=== PATIENT | male | born 1960 | race Caucasian/White ===

== ENCOUNTER → 2016-08-25 | Outpatient (CLI) | payer OTHER ==
[2016-08-25 11:11] LABS: ALBUMIN 3.9 GM/DL (3.2-5.2); ALBUMIN/GLOBULIN RATIO 1.44 (1.00-1.93); ALKALINE PHOSPHATASE 73 U/L (45-117); ALT/SGPT 25 U/L (12-78); ANION GAP 5 MEQ/L (8-16); AST/SGOT 13 U/L (15-37); BILIRUBIN,TOTAL 0.6 MG/DL (0.2-1.0); BLOOD UREA NITROGEN 16 MG/DL (7-18); CALCIUM LEVEL 9.1 MG/DL (8.5-10.1); CARBON DIOXIDE LEVEL 34 MEQ/L (21-32); CHLORIDE LEVEL 103 MEQ/L (98-107); CHOLESTEROL LEVEL 193 MG/DL (<200); CREATININE FOR GFR 0.79 MG/DL (0.70-1.30); FREE T4 0.87 NG/DL (0.76-1.46); GLOMERULAR FILTRATION RATE > 60.0 (>56); GLUCOSE, FASTING 103 MG/DL (70-105); POTASSIUM SERUM 4.6 MEQ/L (3.5-5.1); SODIUM LEVEL 142 MEQ/L (136-145); TOTAL PROTEIN 6.6 GM/DL (6.4-8.2); TRIGLYCERIDES LEVEL 101 MG/DL (<150)
[2016-08-27 10:41] LABS: THYROID PEROXIDASE ANTIBODY < 28.0 U/ML (<60.0)
== END ==
LOC: M LAB 09:20
PROVIDERS: ATTEND Family Medicine
DX: Z13.29 Encounter for screening for other suspected endocrine disorder (principal); Z13.220 Encounter for screening for lipoid disorders; Z12.5 Encounter for screening for malignant neoplasm of prostate; E04.0 Nontoxic diffuse goiter
CPT/HCPCS: 36415; 80053; 80061; 84439; 84443; 86376; 86800; G0103

== ENCOUNTER → 2016-08-31 | Outpatient (CLI) | payer OTHER ==
--- NOTE | 2016-08-31 16:10 | REP ---
Thyroid sonography: History: Diffuse right-sided goiter. Findings: The thyroid isthmus is thickened to 0.8 cm in diameter. The right thyroid lobe measures 10.7 x 7.9 x 6.1 cm in diameter. Left lobe dimensions are 4.6 x 1.9 x 1.7 cm. A large right-sided nodule replaces or essentially replaces the right lobe. Very little normal right thyroid parenchyma is seen. This nodule measures 10.7 x 6.1 x 6.7 cm. There is a 0.3 cm cyst to the left of midline in the isthmus. No left-sided nodule is appreciated. Impression: One very large right thyroid lobe solid nodule. 10.7 cm in greatest diameter. It is essentially replaces the right lobe. Signed by Michael West MD 08/31/2016 05:03 P
== END ==
LOC: M RAD 12:44
PROVIDERS: ATTEND Family Medicine
DX: E04.1 Nontoxic single thyroid nodule (principal)

== ENCOUNTER → 2016-09-07 | Outpatient (CLI) | payer OTHER | LOC: M WUC 08:08 | PROVIDERS: ATTEND Family Medicine | DX: R68.82 Decreased libido (principal) ==

== ENCOUNTER 2016-10-31 15:11 | Observation (INO) | payer OTHER ==
[~2016-10-31] VITALS: Ht 172.7 cm; Wt 84.0 kg
[2016-10-31] MEDS ORDERED: ASPI81CH PO (15:32)
[2016-10-31] MEDS ORDERED: TEST5GEL TOP (15:32)
[2016-10-31] MEDS ORDERED: NYQU1LIQ PO (15:32)
--- NOTE | 2016-10-31 16:48 | REP ---
CT Head without contrast HISTORY: Syncope COMPARISON: None There is no intraparenchymal hemorrhage, acute infarct, mass or midline shift. The ventricular system is normal in appearance. There is no extra cerebral collection. There is no fracture. Mucosal thickening is present in the ethmoid sinuses. Soft tissue swelling is present over the right parietal bone. Impression: There is no intracranial lesion. Signed by Juan Carballo MD 10/31/2016 04:40 P
--- NOTE | 2016-10-31 17:12 | REP ---
Clinical: Near-syncopal episode . Comparison: None . Technique: PA. Findings: The mediastinum and cardiac silhouette are normal. The lung haq are clear and without acute consolidation, effusion, or pneumothorax. The skeletal structures are intact and normal. Impression: 1. No acute cardiopulmonary process. Signed by Joshua Soni MD 10/31/2016 05:04 P
[2016-10-31 17:26] LABS: BASO % 0.2 % (0.0-1.0); EOS % 0.3 % (0.0-3.0); LARGE UNSTAINED CELL # 0.1 K/mm3 (0.0-0.4); LYMPH # 0.5 K/mm3 (1.5-4.5); MEAN CORPUSCULAR HEMOGLOBIN 30.2 pg (27.0-33.0); MEAN CORPUSCULAR HGB CONC 34.1 g/dl (32.0-36.5); MEAN CORPUSCULAR VOLUME 88.5 fl (80.0-96.0); MONO # 0.4 K/mm3 (0.0-0.8); MONO % 8.8 % (0.0-5.0); NEUTROPHILS # 3.1 K/mm3 (1.8-7.7); NEUTROPHILS % 77.6 % (36.0-66.0); PLATELET COUNT, AUTOMATED 153 k/mm3 (150-450); RED CELL DISTRIBUTION WIDTH 12.2 % (11.5-14.5)
[2016-10-31 17:51] LABS: ANION GAP 8 MEQ/L (8-16); BLOOD UREA NITROGEN 24 MG/DL (7-18); CALCIUM LEVEL 8.8 MG/DL (8.5-10.1); CARBON DIOXIDE LEVEL 30 MEQ/L (21-32); CHLORIDE LEVEL 104 MEQ/L (98-107); CREATININE FOR GFR 0.68 MG/DL (0.70-1.30); GLOMERULAR FILTRATION RATE > 60.0 (>56); GLUCOSE, FASTING 110 MG/DL (70-105); SODIUM LEVEL 142 MEQ/L (136-145)
[2016-10-31] MEDS ORDERED: ONDANSETRON 4MG/2ML VIAL (J2405) IV ONE (19:00)
[2016-10-31] MEDS ORDERED: MORPHINE 4 MG/ML 1ML SYRINGE IV ONE (19:00)
[2016-10-31] MEDS ORDERED: METOPROLOL TART 50 MG TAB PO ONE (19:00)
[2016-10-31] MEDS ORDERED: ASPI81TAEC PO (23:56)
[2016-10-31] MEDS ORDERED: ANDR1.62 TD (23:56)
[2016-10-31] MEDS ORDERED: DAYLIQ3 PO (23:58)
[2016-10-31] MEDS ORDERED: VITA500C3 PO (23:58)
[2016-11-01] VITALS (8 sets, daily range): BP systolic 119–205; BP diastolic 55–95
[2016-11-01] MEDS ORDERED: [UNRECOGNIZED DRUG - CODE] PO (00:02)
[2016-11-01] MEDS ORDERED: LISINOPRIL 10 MG TAB PO ONE (00:15)
[2016-11-01] MEDS ORDERED: ONDANSETRON 4MG/2ML VIAL (J2405) IV PRN (00:45)
[2016-11-01] MEDS ORDERED: PERCOCET 5MG/325MG TAB PO PRN (00:45)
[2016-11-01] MEDS ORDERED: ISOVUE-370 76% 100ML VIAL (Q9967) As Ordered ONE ×2 (00:59→08:16)
[2016-11-01 01:09] LABS: MAGNESIUM LEVEL 1.6 MG/DL (1.8-2.4); THYROXINE (T4) 7.9 UG/DL (4.5-12.0)
--- NOTE | 2016-11-01 01:10 | HPEPDOC ---
Medical History and Physical Date of Admission Nov 01, 2016 at 00:16 History and Physical PRIMARY CARE PROVIDER: ATTENDING: Jeff London MD CHIEF COMPLAINT: 'Passed out' HISTORY OF PRESENT ILLNESS: This is a 55-year-old male past medical history of borderline hypertension who presents with a syncopal episode. 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 Patient states that there is a lot of people working with him in close quarters. The patient states that while he was standing he started to have symptoms of dizziness and lightheadedness. Patient then states that he stepped back so that he may sit down, when he suddenly passed out. This was a witnessed syncopal episode. No tongue trauma/fecal or urinary incontinence/ convulsions. Patient states she's had a prior syncopal episode but that's when he had blood drawn in August 2016. Of note patient also states that he's had recent upper respiratory tract symptoms since Saturday with increasing sore throats as well as a nonproductive cough. Patient states the sick contacts are his coworkers. Had also complained of a headache when he coughs that is more frontal, 5 out of 10, no alleviating or exacerbating factors. No prior history of migraines. No focal deficits. No blurred vision. Patient does complain of neck pain upon movement as well as of posterior occipital pain after his he sustained a fall. Patient denied chest pain/shortness of breath/palpitations prior to and after his syncopal episode. Patient also had blood pressure systolic greater than 200s on presentation. He was also noted to have a left bundle-branch block, with no prior EKG noted. Dr. Elizabeth had spoken to Dr. Torres with recommendations to observe the patient overnight on telemetry. Troponins negative 2. Of note the patient does have a fairly large goiter which she states has been there over the past 15 years. He states he's follow-up with his primary care physician who is observing at. He was offered surgical resection in the past however refused. PAST MEDICAL HISTORY: As per HPI PAST SURGICAL HISTORY: None SOCIAL HISTORY:H/o alcohol abuse; quit 35 years ago. Remote history of tobacco abuse - 1ppw. H/o marijuana use. No recent use. Lives with . 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 FAMILY HISTORY: F- CO age 52, B- HTN, M - Lupus ALLERGIES: Please see below. REVIEW OF SYSTEMS: HEENT: + sore throat/headache CARDIOVASCULAR: Denies chest pain/palpitations RESPIRATORY: No shortness of breath/cough GASTROINTESTINAL: denies nausea/vomiting GENITOURINARY: Denies dysuria/urinary urgency. MUSCULOSKELETAL: Denies myalgias/arthralgias NEUROLOGICAL: Denies any focal weakness Rest of ROS negative. HOME MEDICATIONS: Please see below. PHYSICAL EXAMINATION: Vitals: (see below) General: No acute distress, laying comfortably in bed. HEENT: Moist mucous membranes. Bruise on posterior head with some swelling. Minimal serosang drainage. Bruise on left occipital posterior region as well. Neck: No JVD or lymphadenopathy. Neck full ROM with some pain on lateral movement. Large goiter - non tender. Cardiac: RRR, No murmurs Pulm: Coarse crackles b/l bases. No wheezing, rhonchi Abd: NT/ND + BS Ext: No edema or cyanosis Neuro: AAO x3 Strength 5/5 BUE and BLE. CN 2-12 intact. Negative Babinki. LABORATORY DATA: See below. IMAGING: CT Head 10/31/16 Impression: There is no intracranial lesion. CXR 10/31/16 Impression: 1. No acute cardiopulmonary process. MICROBIOLOGY: Please see below. ASSESSMENT/PLAN: Syncope, with posterior head trauma- the patient had one prior episode of syncope during a blood draw in August. Denied any chest pain before or after his syncopal episode. EKG with left bundle branch block with no prior EKG for comparison. Cardiac enzymes negative 2. We'll observe patient's in PCU. We'll also repeat another set of cardiac enzymes in the a.m. Echocardiogram to evaluate valvular function/EF. Consider cardiology consultation the a.m. with Dr. Torres depending on clinical improvement. We'll also check orthostatics. Questionable whether this thyroid goiter/mass contributed to vagal response, or if this left bundle branch block contributed to conduction delay leading to syncope. CT head negative. CT cervical spine pending. Hypertensive urgency- patient states that his blood pressure normally runs 130s/ 70s at home, 150s/80s at his primary care physician's office. Systolic blood pressure was better than 200 on presentation. We'll start patient on lisinopril. Hydralazine as needed. Large goiter/mass- we'll obtain a CT of the neck with contrast to evaluate. 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 DVT prophylaxis- SCDs Patient was followed by Dr. Hodge starting 11/01/16 at 7 AM. Vital Signs Vital Signs Date Time Temp Pulse Resp B/P Pulse Ox O2 Delivery O2 Flow Rate FiO2 10/31/16 15:37 98.9 74 16 180/82 96 Room Air Laboratory Data Labs 24H Laboratory Tests 2 10/31/16 16:56: Anion Gap 8, White Blood Count 4.0, Red Blood Count 4.81, Hemoglobin 14.5, Hematocrit 42.6, Mean Corpuscular Volume 88.5, Mean Corpuscular Hemoglobin 30.2 , Mean Corpuscular Hemoglobin Concent 34.1, Red Cell Distribution Width 12.2, Platelet Count 153, Neutrophils (%) (Auto) 77.6H, Lymphocytes (%) (Auto) 11.0L, Monocytes (%) (Auto) 8.8H, Eosinophils (%) (Auto) 0.3, Basophils (%) (Auto) 0.2 , Neutrophils # (Auto) 3.1, Lymphocytes # (Auto) 0.5L, Monocytes # (Auto) 0.4, Eosinophils # (Auto) 0.0, Basophils # (Auto) 0.0, Blood Urea Nitrogen 24H, Creatinine 0.68L, Sodium Level 142, Potassium Level 4.0, Chloride Level 104, Carbon Dioxide Level 30, Calcium Level 8.8, Total Creatine Kinase 217, Creatine Kinase MB 2.1, Creatine Kinase MB Relative Index 0.96, Glomerular Filtration Rate > 60.0, Large Unclassified Cells # 0.1, Large Unclassified Cells % 2.0, Thyroid Stimulating Hormone (TSH) 1.420, Troponin I 0.03 10/31/16 17:18: Bedside Glucose (Misc Panel) 127H 10/31/16 21:20: Total Creatine Kinase 161, Creatine Kinase MB 1.9, Creatine Kinase MB Relative Index 1.18, Troponin I 0.03 CBC/BMP Laboratory Tests 10/31/16 16:56 Calcium Level 8.8, Total Creatine Kinase 217, Red Blood Count 4.81, Mean Corpuscular Volume 88.5, Mean Corpuscular Hemoglobin 30.2, Mean Corpuscular Hemoglobin Concent 34.1, Red Cell Distribution Width 12.2, Neutrophils (%) (Auto ) 77.6 H, Lymphocytes (%) (Auto) 11.0 L, Monocytes (%) (Auto) 8.8 H, Eosinophils (%) (Auto) 0.3, Basophils (%) (Auto) 0.2, Neutrophils # (Auto) 3.1, Lymphocytes # (Auto) 0.5 L, Monocytes # (Auto) 0.4, Eosinophils # (Auto) 0.0, Basophils # (Auto) 0.0 Microbiology Microbiology 10/31/16 Influenza Virus Type A Antigen - Final, Complete 10/31/16 Influenza Virus Type B Antigen - Final, Complete Home Medications Scheduled (Androgel Pump) 1.62 % Gel 1 DOSE TD DAILY 2 PUMPS, PLACES ON SHOULDERS AND UPPER ARMS Ascorbic Acid (Vitamin C) 500 Mg Chw 500 MG PO DAILY Aspirin (Aspirin EC) 81 Mg Tabec 81 MG PO DAILY Scheduled PRN (Nyquil Severe Cold/Flu 5-6.25-10-325 mg/15Ml) 1 Liq Liq 1 LIQ PO QHS PRN PRN COLD/FLU (Daytime PE Multi-Symptom 10-5-325 mg) 1 Cap Cap 1 CAP PO Q6H PRN PRN COLD/FLU Allergies Coded Allergies: No Known Drug Allergy (Verified Allergy, Unknown, 10/31/16) JEFF LONDON MD Nov 01, 2016 01:10
[2016-11-01] MEDS ORDERED: hydrALAZINE INJ 20 MG/ML VIAL IV SCH (02:00)
--- NOTE | 2016-11-01 02:00 | REPUSA ---
CLINICAL HISTORY: Neck pain. TECHNIQUE: Multiple axial images were obtained through the cervical spine. Images were also reconstru cted in coronal and sagittal planes. The study was performed without IV contrast. COMMENTS: Significantly enlarged right thyroid lobe measuring 11.7x8.5x8.9 cm. Associated heterogeneous nodules of the right thyroid lobe. Associated heterogeneous calcifications. Significant mass effect on the trachea which is deviated to the left side. Retrosternal/superior mediastinal extension of the enlarged right thyroid lobe. There is no fracture or spondylolisthesis visualized. The paraspinal soft tissues are unremarkable. T here are no lytic or blastic lesions. Straightening of cervical lordosis is seen, suggesting muscular spasm. There is evidence of mild mult ilevel disk disease, demonstrated by osteophytosis and endplate sclerosis. Findings are more prominen t at C5-C6 level. IMPRESSION: 1. No fracture or spondylolisthesis. 2. Straightening of cervical lordosis is seen, suggesting muscular spasm. 3. Multilevel spondylosis. Multilevel degenerative disc disease. 4. Retrosternal/superior mediastinum right thyroid goiter. Thank you for your kind referral of this patient.
[2016-11-01] MEDS: ACETAMINOPHEN TAB 650MG DOSE (2X325MG) PO PRN ×3 (02:04→21:43)
[2016-11-01] MEDS ORDERED: amLODIPine 5 MG TAB PO ONE (03:15)
[2016-11-01] MEDS ORDERED: MAG SULF 1GM/100ML (MAG RUN) 1 GM in APPROPRIATE DILUENT 1 EA IV ONE (03:15)
[2016-11-01] MEDS: hydrALAZINE INJ 20 MG/ML VIAL IV SCH ×5 (03:42→08:00)
[2016-11-01] MEDS: cloNIDine 0.1 MG TAB PO SCH ×3 (08:25→21:00)
[2016-11-01] MEDS: LISINOPRIL 10 MG TAB PO SCH ×2 (08:29→21:00)
[2016-11-01] MEDS: amLODIPine 5 MG TAB PO SCH ×2 (08:30→21:44)
[2016-11-01 08:40] LABS: MEAN CORPUSCULAR HEMOGLOBIN 30.1 pg (27.0-33.0); MEAN CORPUSCULAR VOLUME 88.5 fl (80.0-96.0); RED CELL DISTRIBUTION WIDTH 12.3 % (11.5-14.5); WHITE BLOOD COUNT 4.9 K/mm3 (4.0-10.0)
[2016-11-01] MEDS ORDERED: amLODIPine 5 MG TAB PO SCH (09:00)
[2016-11-01] MEDS ORDERED: LISINOPRIL 10 MG TAB PO SCH (09:00)
[2016-11-01 09:03] LABS: ALBUMIN 3.2 GM/DL (3.2-5.2); ALBUMIN/GLOBULIN RATIO 1.03 (1.00-1.93); ALT/SGPT 28 U/L (12-78); ANION GAP 9 MEQ/L (8-16); AST/SGOT 30 U/L (15-37); BILIRUBIN,TOTAL 0.5 MG/DL (0.2-1.0); BLOOD UREA NITROGEN 16 MG/DL (7-18); CALCIUM LEVEL 8.2 MG/DL (8.5-10.1); CARBON DIOXIDE LEVEL 29 MEQ/L (21-32); CHLORIDE LEVEL 99 MEQ/L (98-107); CHOLESTEROL LEVEL 138 MG/DL (<200); GLOMERULAR FILTRATION RATE > 60.0 (>56); GLUCOSE, FASTING 176 MG/DL (70-105); POTASSIUM SERUM 3.6 MEQ/L (3.5-5.1); SODIUM LEVEL 137 MEQ/L (136-145); T UPTAKE 34 % (33-40); THYROXINE (T4) 9.2 UG/DL (4.5-12.0); TOTAL PROTEIN 6.3 GM/DL (6.4-8.2); TRIGLYCERIDES LEVEL 91 MG/DL (<150)
[2016-11-01 09:09] LABS: ALKALINE PHOSPHATASE 50 U/L (45-117)
--- NOTE | 2016-11-01 09:55 | REP ---
CT NECK WITH CONTRAST: HISTORY: Thyroid mass. Contrast: Isovue 370, 75 mL. A large well circumscribed mass with moderate heterogeneous enhancement is present arising from the right thyroid lobe. There is extension into the isthmus. The mass contains several calcifications. The mass measures 6.3 cm in transverse by 6.7 cm in AP x 11.3 cm in cephalocaudal dimensions. There is inferior extension of the mass into the thoracic inlet. There is superior extension of the mass in the right carotid space to the level of the hypopharynx. There is lateral displacement of the right common carotid artery and right internal jugular vein. There is lateral displacement of the hypopharynx, larynx and trachea. There is mild mass-effect on the hypopharynx. The naso- and oropharynx are normal in appearance. The salivary glands are normal. The left thyroid lobe is normal in size and density. Small lymph nodes less than 1 cm in size are present in the internal jugular chains, posterior triangles, submandibular and submental areas. Degenerative change is present in the cervical spine. The lung apices are clear. Mucosal thickening is present in the maxillary and ethmoid sinuses. IMPRESSION: There is a large mass with heterogeneous enhancement arising from the right thyroid lobe. This may represent a goiter, however, neoplasm cannot be excluded. Signed by Juan Carballo MD 11/01/2016 10:04 A
[2016-11-01] MEDS: MECLIZINE 12.5 MG TAB PO SCH ×3 (10:50→21:43)
[2016-11-01] MEDS: NS 1,000 ML IV SCH (13:29)
--- NOTE | 2016-11-01 20:53 | ECGEPIP ---
Stationary ECG Study [facility] - ED Test Date: 2016-10-31 Pat Name: JOVANNI HERCULES Department: Room: - Gender: M Occupational Therapist Assistants: FRANCISCO : 1960 Requested By: Arpan Valentino Order Number: [id number] Reading MD: Amanda Charles Measurements Intervals Bryant Rate: 66 P: 35 WI: 145 QRS: 29 QRSD: 160 T: 82 QT: 447 QTc: 470 Interpretive Statements SINUS RHYTHM LEFT BUNDLE BRANCH BLOCK NO PRIOR FOR COMPARISON Electronically Signed On 11-01-2016 20:52:40 EDT by Amanda Charles
--- NOTE | 2016-11-01 20:58 | ECGEPIP ---
Stationary ECG Study [facility] - ED Test Date: 2016-10-31 Pat Name: JOVANNI HERCULES Department: Room: [place] [address] Gender: M Bundle Person: MYNOR : 1960 Requested By: Arpan Valentino Order Number: [id number] Reading MD: Amanda Charles Measurements Intervals Marble Rate: 66 P: 47 HI: 141 QRS: 41 QRSD: 157 T: 79 QT: 462 QTc: 486 Interpretive Statements SINUS RHYTHM LEFT BUNDLE BRANCH BLOCK SIMILAR 10/31/16 16:57 Electronically Signed On 11-01-2016 20:58:25 EDT by Amanda Charles
[2016-11-02] MEDS: NS 1,000 ML IV SCH (01:44)
[2016-11-02 06:00] VITALS: BP 140/67
--- NOTE | 2016-11-02 06:18 | IPNPDOC ---
Subjective Date Seen The patient was seen on 11/01/16. Subjective Chief Complaint/HPI The patient is a 55-year-old male admitted with a reason for visit of Intraventricular Conduction Delay. Events since last encounter continues to feel dizzy and light headed on slightest moving. Had fever this morning , continues to have upper respiratory tract symptoms. Objective Physical Examination General Exam: Positive: Alert, No Acute Distress Eye Exam: Positive: Conjunctiva & lids normal, EOMI, PERRLA, Negative: Sclera icteric ENT Exam: Positive: Atraumatic, Mucous membr. moist/pink, Pharynx Normal Neck Exam: Positive: Supple, Negative: JVD, thyromegaly Chest Exam: Positive: Clear to auscultation, Normal air movement Heart Exam: Positive: Normal S1, Normal S2, Rate Normal, Regular Rhythm, Negative: Murmurs, Rubs Telemetry: Positive: No significant arrhythmia Abdomen Exam: Positive: Normal bowel sounds, Soft, Negative: Hepatospenomegaly, Tenderness Extremity Exam: Positive: Normal pulses, Negative: Clubbing, Cyanosis, Edema Skin Exam: Positive: Nl turgor and temperature, Negative: Breakdown, Rash Assessment /Plan Problems (1) Hypertensive urgency Status: Acute Problem Text: started on amlodipine and lisinopril with hold parameters. (2) Influenza Status: Acute Problem Text: influenza B , Patient having symptoms for 5 to 6 days so will not give tamiflu. droplet isolation will give gentle hydration. (3) Vertigo Status: Acute Problem Text: will start on meclizine could have vestibular neuronitis as having upper respiratory symptoms for the past week. (4) Syncope and collapse Status: Acute Problem Text: no cardiac event noted in the telemetry possibly vasovagal syncope (5) Intraventricular conduction delay Status: Acute Response to Treatment: Stable Problem Text: cardiac enzymes are negative. Plan/VTE VTE Prophylaxis Ordered?: Yes VS, I&O, 24H, Davidbone Vital Signs/I&O Vital Signs Date Time Temp Pulse Resp B/P Pulse Ox O2 Delivery O2 Flow Rate FiO2 11/01/16 09:09 98.4 53 18 119/55 96 Room Air I&O- Last 24 Hours up to 6 AM 11/01/16 06:00 Intake Total 100 ml Balance 100 ml Laboratory Data 24H LABS Laboratory Tests 2 10/31/16 16:56: Anion Gap 8, White Blood Count 4.0, Red Blood Count 4.81, Hemoglobin 14.5, Hematocrit 42.6, Mean Corpuscular Volume 88.5, Mean Corpuscular Hemoglobin 30.2 , Mean Corpuscular Hemoglobin Concent 34.1, Red Cell Distribution Width 12.2, Platelet Count 153, Neutrophils (%) (Auto) 77.6H, Lymphocytes (%) (Auto) 11.0L, Monocytes (%) (Auto) 8.8H, Eosinophils (%) (Auto) 0.3, Basophils (%) (Auto) 0.2 , Neutrophils # (Auto) 3.1, Lymphocytes # (Auto) 0.5L, Monocytes # (Auto) 0.4, Eosinophils # (Auto) 0.0, Basophils # (Auto) 0.0, Blood Urea Nitrogen 24H, Creatinine 0.68L, Sodium Level 142, Potassium Level 4.0, Chloride Level 104, Carbon Dioxide Level 30, Calcium Level 8.8, Total Creatine Kinase 217, Creatine Kinase MB 2.1, Creatine Kinase MB Relative Index 0.96, Glomerular Filtration Rate > 60.0, Large Unclassified Cells # 0.1, Large Unclassified Cells % 2.0, Thyroid Stimulating Hormone (TSH) 1.420, Troponin I 0.03 10/31/16 17:18: Bedside Glucose (Misc Panel) 127H 10/31/16 21:20: Total Creatine Kinase 161, Creatine Kinase MB 1.9, Creatine Kinase MB Relative Index 1.18, Thyroid Stimulating Hormone (TSH) 1.750, Troponin I 0.03, Free Thyroxine Index 2.8, Magnesium Level 1.6L, Thyroxine (T4) 7.9, Triiodothyronine (T3) Uptake 36 11/01/16 08:22: Anion Gap 9, Blood Urea Nitrogen 16, Creatinine 0.80, Sodium Level 137, Potassium Level 3.6, Chloride Level 99, Carbon Dioxide Level 29, Calcium Level 8.2L, Total Creatine Kinase 154, Creatine Kinase MB 1.3, Creatine Kinase MB Relative Index 0.84, Glomerular Filtration Rate > 60.0, Thyroid Stimulating Hormone (TSH) 1.270, Troponin I 0.03, Free Thyroxine Index 3.1, Magnesium Level 2.0, Thyroxine (T4) 9.2, Triiodothyronine (T3) Uptake 34, Aspartate Amino Transf (AST/SGOT) 30, Alanine Aminotransferase (ALT/SGPT) 28, Alkaline Phosphatase 50, Total Bilirubin 0.5, Triglycerides Level 91, Cholesterol Level 138, HDL Cholesterol 45, LDL Cholesterol 74.8, Total Protein 6.3L, Albumin 3.2, Albumin/Globulin Ratio 1.03, Cholesterol/HDL Ratio 3.066, Non-HDL Cholesterol ( LDL + VLDL) 93 CBC/BMP Laboratory Tests 10/31/16 16:56 Calcium Level 8.8, Total Creatine Kinase 217, Red Blood Count 4.81, Mean Corpuscular Volume 88.5, Mean Corpuscular Hemoglobin 30.2, Mean Corpuscular Hemoglobin Concent 34.1, Red Cell Distribution Width 12.2, Neutrophils (%) (Auto ) 77.6 H, Lymphocytes (%) (Auto) 11.0 L, Monocytes (%) (Auto) 8.8 H, Eosinophils (%) (Auto) 0.3, Basophils (%) (Auto) 0.2, Neutrophils # (Auto) 3.1, Lymphocytes # (Auto) 0.5 L, Monocytes # (Auto) 0.4, Eosinophils # (Auto) 0.0, Basophils # (Auto) 0.0 11/01/16 08:22 Calcium Level 8.2 L, Total Creatine Kinase 154, Red Blood Count 4.90, Mean Corpuscular Volume 88.5, Mean Corpuscular Hemoglobin 30.1, Mean Corpuscular Hemoglobin Concent 34.0, Red Cell Distribution Width 12.3, Aspartate Amino Transf (AST/SGOT) 30, Alanine Aminotransferase (ALT/SGPT) 28, Alkaline Phosphatase 50, Total Bilirubin 0.5, Triglycerides Level 91, Cholesterol Level 138, HDL Cholesterol 45, LDL Cholesterol 74.8, Total Protein 6.3 L, Albumin 3.2 Microbiology Microbiology 10/31/16 Respiratory Virus Panel (PCR) (LILIANA) - Final, Complete Influenza B 10/31/16 Influenza Virus Type A Antigen - Final, Complete 10/31/16 Influenza Virus Type B Antigen - Final, Complete DEBBY NICHOLS MD Nov 01, 2016 12:59
[2016-11-02 07:20] LABS: MEAN CORPUSCULAR HEMOGLOBIN 30.2 pg (27.0-33.0); MEAN CORPUSCULAR HGB CONC 34.3 g/dl (32.0-36.5); RED CELL DISTRIBUTION WIDTH 12.2 % (11.5-14.5); WHITE BLOOD COUNT 4.7 K/mm3 (4.0-10.0)
[2016-11-02 07:53] LABS: ALBUMIN 2.9 GM/DL (3.2-5.2); ALBUMIN/GLOBULIN RATIO 1.04 (1.00-1.93); ALKALINE PHOSPHATASE 45 U/L (45-117); ALT/SGPT 30 U/L (12-78); ANION GAP 7 MEQ/L (8-16); AST/SGOT 28 U/L (15-37); BILIRUBIN,TOTAL 0.6 MG/DL (0.2-1.0); BLOOD UREA NITROGEN 13 MG/DL (7-18); CARBON DIOXIDE LEVEL 29 MEQ/L (21-32); CHLORIDE LEVEL 102 MEQ/L (98-107); CREATININE FOR GFR 0.64 MG/DL (0.70-1.30); GLOMERULAR FILTRATION RATE > 60.0 (>56); GLUCOSE, FASTING 96 MG/DL (70-105); POTASSIUM SERUM 4.1 MEQ/L (3.5-5.1); SODIUM LEVEL 138 MEQ/L (136-145); TOTAL PROTEIN 5.7 GM/DL (6.4-8.2)
[2016-11-02] MEDS: MECLIZINE 12.5 MG TAB PO SCH ×3 (08:40→21:28)
[2016-11-02] MEDS: amLODIPine 5 MG TAB PO SCH ×2 (08:41→21:29)
[2016-11-02] MEDS: LISINOPRIL 10 MG TAB PO SCH (08:41)
[2016-11-02] MEDS: cloNIDine 0.1 MG TAB PO SCH ×3 (08:41→21:21)
[2016-11-02 22:00] VITALS: BP 132/52
[2016-11-03 06:00] VITALS: BP 140/60
[2016-11-03] MEDS ORDERED: MECL12.575 PO (06:03)
[2016-11-03] MEDS ORDERED: AMLO5TAB2 PO (06:03)
[2016-11-03] MEDS: amLODIPine 5 MG TAB PO SCH (08:37)
[2016-11-03 08:38] VITALS: BP 173/81
[2016-11-03] MEDS: MECLIZINE 12.5 MG TAB PO SCH (08:38)
[2016-11-03] MEDS: cloNIDine 0.1 MG TAB PO SCH (08:38)
--- NOTE | 2016-11-03 09:55 | DSES ---
DATE OF ADMISSION: 11/01/2016 DATE OF DISCHARGE: 11/03/2016 PRIMARY CARE PROVIDER: Dr. Webb DISCHARGE DIAGNOSES: Vasovagal syncope. Scalp hematoma in the occipital region. Influenza B. Vertigo. Hypertensive urgency. Left bundle branch block. ADDITIONAL DISCHARGE DIAGNOSES: Large right-sided goiter. Possible vestibular neuronitis. DISCHARGE MEDICATIONS: - amlodipine 5 mg by mouth twice a day - meclizine 12.5 mg by mouth three times a day as needed - Androgel pump 1.62% gel one dose transdermal daily - vitamin C 500 mg by mouth daily - aspirin 81 mg by mouth daily - NyQuil Severe as needed cough or cold daytime - phenylephrine multisymptom 10-5-325 one capsule by mouth every 6 hours as needed cold or flu HOSPITAL COURSE: This is a 55-year-old male who presented to the hospital after he passed out while waiting in a queue to get into his work. 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 While he was standing, he started feeling dizzy and lightheadedness and then suddenly fell backwards hitting the back of his head and sustaining a scalp hematoma with some bleeding, so he was brought to the emergency room. In the emergency department (ED), he was noted to have hypertensive urgency and also a low grade fever. The patient was started on medications for control of his hypertension. He had a respiratory panel sent, which showed he has influenza B. However, his symptoms had already started for greater than 5 days with cough, cold, upper respiratory tract symptoms, so he was not given Tamiflu. He was also felt to be mildly dehydrated, so he got some intravenous (IV) fluids. With control of his blood pressure and some hydration, his dizziness and lightheadedness improved. He did have a maximum temperature (T max) of 101.7 in the hospital. However, right now he is feeling better. His appetite has improved. His dizziness is better. At present, his vital signs are stable, he is afebrile, functionally almost close to his baseline and is going to be discharged home. PHYSICAL EXAMINATION: Vital signs: Temperature 98.6, pulse 71, respiratory rate 16, blood pressure 132/52, pulse oximetry 95% in room air. General: Patient awake, alert, oriented times three, laying down in bed in no acute distress. HEENT: Normocephalic, atraumatic. Moist mucous membranes. Anicteric eyes. Chest: Clear to auscultation. Cardiovascular: S1, S2 regular. No rub, murmur or gallop. Abdomen: Soft, nontender. Bowel sounds present. Extremities: No edema. LABORATORY DATA: WBC 4.7, hemoglobin 13.4, platelets 136. Sodium 138, potassium 4.1, chloride 102, bicarbonate 29, BUN 13, creatinine 0.6, glucose 96, albumin 2.9. LFTs are normal. CT of the neck showed a large heterogenous mass arising from the right thyroid lobe, which could be a goiter; however, neoplasm could not be excluded. CT of the cervical spine did not show any fracture or spondylolisthesis. There was straightening of the cervical lordosis suggesting muscular spasm. Multilevel degenerative disc disease. Retrosternal and superior mediastinum right thyroid goiter. CT of the head showed soft tissue swelling present over the right parietal lobe. No intracranial lesion. No fracture. Chest x-ray did not show any acute cardiopulmonary process. DISPOSITION: The patient is discharged home in stable condition. DISCHARGE INSTRUCTIONS: The patient is to followup with the primary care provider in 2 weeks. Regular diet. Activity as tolerated. However, suggested 2 days of rest before going back to his regular job.
--- NOTE | 2016-11-03 09:59 | ECHO ---
DATE OF SERVICE: 11/01/2016 REFERRING PROVIDER: Dr. Cornelio Flowers PATIENT LOCATION: Room 4222. REASON FOR ECHOCARDIOGRAM: Syncope. 2D MEASUREMENTS: IVS: 1.0 cm LV: 5.8 cm LVPW: 1.0 cm LA: 4.5 cm Aorta: 3.1 cm IVC: 2.2 cm DOPPLER MEASUREMENTS: Peak velocity across the aortic valve: 1.7 m/s Peak velocity across the LVOT: 1.4 m/s Mitral E: 0.91 Mitral A: 0.77 with a ratio of 1.2 2D COMMENTS: 1. Mildly enlarged left ventricle with a normal left ventricular wall thickness , but a depressed global left ventricular systolic function. The anterior septum, possibly the mid and the basal portions, appeared to be moderately hypokinetic. The estimated global left ventricular systolic ejection fraction is 35%. 2. Mildly enlarged left atrium. Normal right atrium and right ventricle. 3. The atrial septum appeared to be normal without evidence of defect or shunt. 4. Normal aortic root. 5. No pericardial effusion seen. 6. The aortic valve appeared to be normal as well as the mitral valve and the tricuspid valve. The pulmonic valve and proximal pulmonary artery branches also appear to be normal. 7. The inferior vena cava was mildly enlarged, central venous pressure might be elevated. DOPPLER: It detects mild mitral regurgitation and trace tricuspid regurgitation. Abnormal relaxation pattern was noted across the septal and lateral mitral valve annulus consistent with a pseudo-normal pattern, left ventricular end-diastolic pressure might be elevated. IMPRESSION: 1. Moderately depressed global left ventricular systolic dysfunction with regional wall motion abnormalities that may be related to underlying coronary artery disease. There are features of left ventricular diastolic dysfunction as mentioned above. 2. Mildly enlarged left atrium with mild mitral regurgitation. 3. Trace tricuspid regurgitation with a normal pulmonary artery systolic pressure. [facility]
== END 2016-11-03 09:30 | disposition home or self-care (01) ==
LOC: EDBD 15:11 → M ED 17:35 → M ED INP 11-01 00:16 → M MSPAV 11-01 11:03
PROVIDERS: ADMIT Internal Medicine; ATTEND Internal Medicine Nephrology
DX: R55 Syncope and collapse (principal); S00.03XA Contusion of scalp, initial encounter; W19.XXXA Unspecified fall, initial encounter; Y92.89 Other specified places as the place of occurrence of the external cause; Y93.89 Activity, other specified; Y99.8 Other external cause status; J10.1 Influenza due to other identified influenza virus with other respiratory manifestations; R42 Dizziness and giddiness; I16.0 Hypertensive urgency; I44.7 Left bundle-branch block, unspecified; E04.9 Nontoxic goiter, unspecified; E86.0 Dehydration; Z79.899 Other long term (current) drug therapy; Z79.82 Long term (current) use of aspirin; Z87.891 Personal history of nicotine dependence
CPT/HCPCS: 36415; 70450; 70491; 71010; 72125; 80048; 80053; 80061; 82550; 82553; 83735; 84436; 84443; 84479; 85025; 85027; 87486; 87581; 87633; 87798; 87804; 93005; 93041; 94760; 96365; 96366; 96375; 96376; 97161; 99285; J2405; J3475; Q9967

== ENCOUNTER → 2017-01-29 | Outpatient (CLI) | payer OTHER ==
[~2017-01-29] MED LIST: AMLO5TAB2 PO; ANDR1.62 TD; ASPI81CH PO; ASPI81TAEC PO; DAYLIQ3 PO; MECL12.575 PO; NYQU1LIQ PO; TEST5GEL TOP; VITA500C3 PO; [UNRECOGNIZED DRUG - CODE] PO
[2017-02-01 00:06] LABS: PSA TOTAL 0.7 ng/mL (0.0-4.0)
== END ==
LOC: M WUC 12:02
PROVIDERS: ATTEND Family Medicine
DX: E29.1 Testicular hypofunction (principal)

== ENCOUNTER → 2017-05-02 | Outpatient (CLI) | payer OTHER ==
--- NOTE | 2017-05-02 15:54 | REP ---
CAROTID ULTRASOUND: Real-time ultrasound evaluation and duplex Doppler interrogation of the extracranial carotid vasculature is performed. There is minimal plaquing and narrowing in both carotid bulbs extending into the internal and external carotid arteries. Luminal narrowing is certainly less than 50%. There is no evidence of hemodynamically significant stenosis of either internal carotid artery. Normal flow velocities are seen. The vertebral arteries demonstrate normal direction of flow. RIGHT LEFT Peak systolic velocity ICA 80.3 cm/s 70 cm/s End diastolic velocity ICA 24.6 cm/s 18.1 cm/s Peak systolic velocity CCA 136 cm/s 139 cm/s Peak systolic velocity ECA 82 cm/s 131 cm/s ICA/CCA ratio 0.59 0.50 IMPRESSION: Bilateral luminal narrowing of the internal carotid arteries of a minimal degree . No evidence of hemodynamically significant stenosis. Note is again made of a large nodule in the right lobe of the thyroid. Signed by Feliz Perez MD 05/02/2017 03:46 P
== END ==
LOC: M RAD 12:12
PROVIDERS: ATTEND Family Medicine
DX: R09.89 Other specified symptoms and signs involving the circulatory and respiratory systems (principal)

== ENCOUNTER → 2017-06-04 | Outpatient (CLI) | payer OTHER ==
[2017-06-04 15:56] LABS: BASO # 0.1 10^3/uL (0.0-0.2); BASO % 0.9 % (0.0-1.0); EOS # 0.1 10^3/uL (0.0-0.50); EOS % 1.7 % (0.0-3.0); IMMATURE GRANULOCYTE % 0.4 % (0-0); LYMPH # 1.5 10^3/uL (1.5-4.5); MEAN CORPUSCULAR HEMOGLOBIN 29.6 pg (27.0-33.0); MEAN CORPUSCULAR HGB CONC 33.8 g/dl (32.0-36.5); MEAN CORPUSCULAR VOLUME 87.7 fl (80.0-96.0); MONO # 0.7 10^3/uL (0.0-0.8); MONO % 10.1 % (0.0-5.0); NEUTROPHILS # 4.7 10^3/uL (1.8-7.7); NEUTROPHILS % 65.9 % (36.0-66.0); PLATELET COUNT, AUTOMATED 371 10^3/uL (150-450); WHITE BLOOD COUNT 7.1 10^3/uL (4.0-10.0)
[2017-06-04 16:28] LABS: ALBUMIN 3.8 GM/DL (3.2-5.2); ALBUMIN/GLOBULIN RATIO 1.23 (1.00-1.93); ALKALINE PHOSPHATASE 73 U/L (45-117); ALT/SGPT 38 U/L (12-78); ANION GAP 8 MEQ/L (8-16); AST/SGOT 26 U/L (15-37); BILIRUBIN,TOTAL 0.7 MG/DL (0.2-1.0); BLOOD UREA NITROGEN 16 MG/DL (7-18); CALCIUM LEVEL 8.9 MG/DL (8.5-10.1); CARBON DIOXIDE LEVEL 30 MEQ/L (21-32); CHLORIDE LEVEL 100 MEQ/L (98-107); CREATININE FOR GFR 0.82 MG/DL (0.70-1.30); GLOMERULAR FILTRATION RATE > 60.0 (>56); GLUCOSE, FASTING 101 MG/DL (70-105); SODIUM LEVEL 138 MEQ/L (136-145); TOTAL PROTEIN 6.9 GM/DL (6.4-8.2)
== END ==
LOC: M WUC 11:45
PROVIDERS: ATTEND Internal Medicine Cardiovascular Disease
DX: I34.0 Nonrheumatic mitral (valve) insufficiency (principal); I11.9 Hypertensive heart disease without heart failure

== ENCOUNTER → 2018-01-28 | Outpatient (REF) | payer OTHER ==
[2018-01-28 17:43] LABS: FREE T4 0.94 NG/DL (0.76-1.46)
== END ==
LOC: M LABDRAW1 11:59
DX: C73 Malignant neoplasm of thyroid gland (principal)

== ENCOUNTER → 2018-06-03 | Outpatient (CLI) | payer OTHER ==
[2018-06-03 09:15] LABS: BASO # 0.1 10^3/uL (0.0-0.2); BASO % 0.9 % (0.0-1.0); EOS # 0.2 10^3/uL (0.0-0.50); EOS % 2.6 % (0.0-3.0); HEMATOCRIT 42.7 % (42.0-52.0); HEMOGLOBIN 14.5 g/dl (13.5-17.5); IMMATURE GRANULOCYTE % 0.3 % (0-3.0); LYMPH # 1.6 10^3/uL (1.5-4.5); LYMPH % 28.2 % (24.0-44.0); MEAN CORPUSCULAR HEMOGLOBIN 30.3 pg (27.0-33.0); MEAN CORPUSCULAR VOLUME 89.3 fl (80.0-96.0); MONO # 0.6 10^3/uL (0.0-0.8); MONO % 9.6 % (0.0-5.0); NEUTROPHILS # 3.4 10^3/uL (1.8-7.7); NEUTROPHILS % 58.4 % (36.0-66.0); PLATELET COUNT, AUTOMATED 263 10^3/uL (150-450); RED BLOOD COUNT 4.78 10^6/uL (4.30-6.10); RED CELL DISTRIBUTION WIDTH 12.2 % (11.5-14.5); WHITE BLOOD COUNT 5.8 10^3/uL (4.0-10.0)
[2018-06-03 09:41] LABS: ALBUMIN 3.9 GM/DL (3.2-5.2); ALKALINE PHOSPHATASE 58 U/L (45-117); ALT/SGPT 21 U/L (12-78); ANION GAP 8 MEQ/L (8-16); AST/SGOT 16 U/L (7-37); BILIRUBIN,TOTAL 0.4 MG/DL (0.2-1.0); BLOOD UREA NITROGEN 19 MG/DL (7-18); CALCIUM LEVEL 9.2 MG/DL (8.5-10.1); CARBON DIOXIDE LEVEL 28 MEQ/L (21-32); CHLORIDE LEVEL 105 MEQ/L (98-107); CHOLESTEROL LEVEL 191 MG/DL (<200); CHOLESTEROL RISK RATIO 3.897 (<5); CREATININE FOR GFR 0.82 MG/DL (0.70-1.30); FREE T4 0.96 NG/DL (0.76-1.46); GLOMERULAR FILTRATION RATE > 60.0 (>56); GLUCOSE, FASTING 114 MG/DL (70-100); HDL CHOLESTEROL 49 MG/DL (>40); LDL CHOLESTEROL 126 MG/DL (<100); NON-HDL-C 142 MG/DL; POTASSIUM SERUM 4.4 MEQ/L (3.5-5.1); SODIUM LEVEL 141 MEQ/L (136-145); TOTAL PROTEIN 6.5 GM/DL (6.4-8.2); TRIGLYCERIDES LEVEL 78 MG/DL (<150)
== END ==
LOC: M WUC 08:08
DX: E78.00 Pure hypercholesterolemia, unspecified (principal); I11.9 Hypertensive heart disease without heart failure
CPT/HCPCS: 84443

== ENCOUNTER → 2018-12-19 | Outpatient (CLI) | payer OTHER ==
[~2018-12-19] MED LIST changes: -AMLO5TAB2 PO; +AMLO5TAB6 PO; -ASPI81CH PO; +ASPI81CH49 PO
[2018-12-19 17:07] LABS: THYROGLOBULIN ANTIBODY < 15.0 U/ML (<60.0)
[2018-12-23 14:16] LABS: THRYOGLOBULIN ANTIBODIES (ATA) < 1.0 IU/mL (0.0-0.9); THYROGLOBULIN QUANTITATIVE 4.1 ng/mL (1.4-29.2)
== END ==
LOC: M WUC 10:55
PROVIDERS: ATTEND Internal Medicine Endocrinology, Diabetes & Metabolism
DX: C73 Malignant neoplasm of thyroid gland (principal)

== ENCOUNTER → 2018-12-19 | Outpatient (CLI) | payer OTHER ==
[2018-12-19 17:00] LABS: BLOOD UREA NITROGEN 24 MG/DL (7-18); CALCIUM LEVEL 9.2 MG/DL (8.5-10.1); CARBON DIOXIDE LEVEL 30 MEQ/L (21-32); CHLORIDE LEVEL 100 MEQ/L (98-107); GLOMERULAR FILTRATION RATE > 60.0 (>56); GLUCOSE, FASTING 104 MG/DL (70-100); POTASSIUM SERUM 4.2 MEQ/L (3.5-5.1); SODIUM LEVEL 136 MEQ/L (136-145)
[2018-12-19 17:13] LABS: HEMOGLOBIN A1c 6.2 %
== END ==
LOC: M WUC 11:04
PROVIDERS: ATTEND Physician Assistant
DX: Z12.5 Encounter for screening for malignant neoplasm of prostate (principal); R73.01 Impaired fasting glucose
CPT/HCPCS: 83036; G0103

== ENCOUNTER → 2018-12-19 | Outpatient (CLI) | payer OTHER ==
[2018-12-19 16:50] LABS: HEMATOCRIT 45.5 % (42.0-52.0); HEMOGLOBIN 15.2 g/dl (13.5-17.5); MEAN CORPUSCULAR HEMOGLOBIN 30.3 pg (27.0-33.0); MEAN CORPUSCULAR HGB CONC 33.4 g/dl (32.0-36.5); MEAN CORPUSCULAR VOLUME 90.6 fl (80.0-96.0); PLATELET COUNT, AUTOMATED 288 10^3/uL (150-450); RED BLOOD COUNT 5.02 10^6/uL (4.30-6.10); WHITE BLOOD COUNT 8.6 10^3/uL (4.0-10.0)
[2018-12-19 17:07] LABS: ALBUMIN 4.4 GM/DL (3.2-5.2); ALT/SGPT 28 U/L (12-78); BLOOD UREA NITROGEN 23 MG/DL (7-18); CALCIUM LEVEL 9.1 MG/DL (8.5-10.1); CARBON DIOXIDE LEVEL 29 MEQ/L (21-32); CHLORIDE LEVEL 101 MEQ/L (98-107); CHOLESTEROL LEVEL 229 MG/DL (<200); CHOLESTEROL RISK RATIO 4.163 (<5); FREE T4 1.02 NG/DL (0.76-1.46); GLOMERULAR FILTRATION RATE > 60.0 (>56); GLUCOSE, FASTING 104 MG/DL (70-100); HDL CHOLESTEROL 55 MG/DL (>40); LDL CHOLESTEROL 149 MG/DL (<100); NON-HDL-C 174 MG/DL; POTASSIUM SERUM 4.2 MEQ/L (3.5-5.1); SODIUM LEVEL 136 MEQ/L (136-145); TOTAL PROTEIN 7.1 GM/DL (6.4-8.2); TRIGLYCERIDES LEVEL 127 MG/DL (<150)
== END ==
LOC: M WUC 10:59
PROVIDERS: ATTEND Physician Assistant
DX: I11.0 Hypertensive heart disease with heart failure (principal)

== ENCOUNTER → 2019-05-20 | Outpatient (CLI) | payer OTHER ==
[2019-05-20 16:44] LABS: ALT/SGPT 24 U/L (12-78); BILIRUBIN,TOTAL 0.7 MG/DL (0.2-1.0); BLOOD UREA NITROGEN 15 MG/DL (7-18); CARBON DIOXIDE LEVEL 31 MEQ/L (21-32); CHLORIDE LEVEL 101 MEQ/L (98-107); CHOLESTEROL LEVEL 185 MG/DL (<200); CHOLESTEROL RISK RATIO 3.627 (<5); CREATININE FOR GFR 0.73 MG/DL (0.70-1.30); GLOMERULAR FILTRATION RATE > 60.0 (>49); GLUCOSE, FASTING 84 MG/DL (70-100); HDL CHOLESTEROL 51 MG/DL (>40); LDL CHOLESTEROL 98 MG/DL (<100); NON-HDL-C 134 MG/DL; POTASSIUM SERUM 3.9 MEQ/L (3.5-5.1); SODIUM LEVEL 138 MEQ/L (136-145); TOTAL PROTEIN 6.9 GM/DL (6.4-8.2); TRIGLYCERIDES LEVEL 179 MG/DL (<150)
[2019-05-20 17:13] LABS: HEMOGLOBIN A1c 6.2 %
== END ==
LOC: M WUC 12:48
PROVIDERS: ATTEND Physician Assistant
DX: Z00.00 Encounter for general adult medical examination without abnormal findings (principal)

== ENCOUNTER → 2019-09-26 | Outpatient (CLI) | payer OTHER ==
[~2019-09-26] MED LIST changes: -MECL12.575 PO; +MECL12.589 PO
[2019-09-26 14:10] LABS: BASO # 0.1 10^3/uL (0.0-0.2); BASO % 0.7 % (0.0-1.0); EOS # 0.2 10^3/uL (0.0-0.5); EOS % 2.4 % (0.0-3.0); HEMATOCRIT 43.7 % (42.0-52.0); HEMOGLOBIN 14.5 g/dl (13.5-17.5); LYMPH # 1.7 10^3/uL (1.5-5.0); LYMPH % 22.5 % (24.0-44.0); MEAN CORPUSCULAR HGB CONC 33.2 g/dl (32.0-36.5); MEAN CORPUSCULAR VOLUME 90.3 fl (80.0-96.0); MONO # 0.6 10^3/uL (0.0-0.8); MONO % 7.7 % (0.0-5.0); NEUTROPHILS % 66.3 % (36.0-66.0); PLATELET COUNT, AUTOMATED 303 10^3/uL (150-450); RED BLOOD COUNT 4.84 10^6/uL (4.30-6.10); WHITE BLOOD COUNT 7.5 10^3/uL (4.0-10.0)
[2019-09-26 14:18] LABS: ALT/SGPT 23 U/L (12-78); BILIRUBIN,TOTAL 0.4 MG/DL (0.2-1.0); BLOOD UREA NITROGEN 19 MG/DL (7-18); CALCIUM LEVEL 9.3 MG/DL (8.8-10.2); CARBON DIOXIDE LEVEL 28 MEQ/L (21-32); CHLORIDE LEVEL 104 MEQ/L (98-107); CHOLESTEROL LEVEL 211 MG/DL (<200); CHOLESTEROL RISK RATIO 4.489 (<5); CREATININE FOR GFR 0.86 MG/DL (0.70-1.30); GLOMERULAR FILTRATION RATE > 60.0 (>49); GLUCOSE, FASTING 110 MG/DL (70-100); HDL CHOLESTEROL 47 MG/DL (>40); LDL CHOLESTEROL 141 MG/DL (<100); NON-HDL-C 164 MG/DL; POTASSIUM SERUM 4.1 MEQ/L (3.5-5.1); SODIUM LEVEL 140 MEQ/L (136-145); TRIGLYCERIDES LEVEL 115 MG/DL (<150)
[2019-09-26 14:32] LABS: HEMOGLOBIN A1c 6.2 %
== END ==
LOC: M WUC 09:23
PROVIDERS: ATTEND Family Medicine
DX: R73.03 Prediabetes (principal); E78.00 Pure hypercholesterolemia, unspecified; I11.9 Hypertensive heart disease without heart failure

== ENCOUNTER 2019-10-15 13:40 | Emergency (ER) | payer OTHER ==
[~2019-10-15] VITALS: Ht 175.3 cm; Wt 96.1 kg
[2019-10-15] MEDS ORDERED: HEPARIN DRIP 25,000 UNITS in IV 1 EA IV SCH (13:57)
[2019-10-15] MEDS ORDERED: NITROGLYCERIN 0.4 MG SUBL TABLET As Ordered ONE (13:59)
[2019-10-15] MEDS ORDERED: TENECTEPLASE 50 MG KIT (TNKase) (J3101 PER 1MG) IV ONE (14:00)
[2019-10-15] MEDS ORDERED: ASPIRIN 81 MG CHEW TABLET PO ONE (14:00)
[2019-10-15] MEDS ORDERED: ONDANSETRON 4MG/2ML VIAL (J2405) IV ONE (14:00)
[2019-10-15] MEDS ORDERED: HEPARIN SOD (PORCINE) 5000 UNITS/ML VIAL (J1644 PER 1000UNITS) IV ONE (14:00)
[2019-10-15] MEDS ORDERED: TENECTEPLASE 50 MG KIT (TNKase) (J3101 PER 1MG) As Ordered ONE (14:02)
[2019-10-15] MEDS ORDERED: MORPHINE 4 MG/ML 1ML VIAL/SYRINGE (J2270) As Ordered ONE ×2 (14:06→14:19)
[2019-10-15] MEDS ORDERED: CHLO125TA PO (14:09)
[2019-10-15] MEDS ORDERED: IRBE300T7 PO (14:09)
[2019-10-15] MEDS ORDERED: SPIR-10 PO (14:09)
[2019-10-15] MEDS ORDERED: AMLO5TAB6 PO (14:09)
[2019-10-15 14:13] LABS: BASO % 0.2 % (0.0-1.0); EOS % 0.2 % (0.0-3.0); HEMATOCRIT 41.6 % (42.0-52.0); HEMOGLOBIN 13.9 g/dl (13.5-17.5); LYMPH # 0.9 10^3/uL (1.5-5.0); LYMPH % 5.5 % (24.0-44.0); MEAN CORPUSCULAR HEMOGLOBIN 29.9 pg (27.0-33.0); MEAN CORPUSCULAR HGB CONC 33.4 g/dl (32.0-36.5); MEAN CORPUSCULAR VOLUME 89.5 fl (80.0-96.0); MONO # 0.9 10^3/uL (0.0-0.8); MONO % 5.5 % (0.0-5.0); NEUTROPHILS # 14.2 10^3/uL (1.5-8.5); PLATELET COUNT, AUTOMATED 277 10^3/uL (150-450); RED BLOOD COUNT 4.65 10^6/uL (4.30-6.10); WHITE BLOOD COUNT 16.1 10^3/uL (4.0-10.0)
--- NOTE | 2019-10-15 14:18 | REP ---
CHEST, SINGLE VIEW: There is no evidence of acute infiltrate. No pleural effusion is seen. The heart is normal in size. The mediastinal silhouette is unremarkable. The visualized osseous structures are intact. IMPRESSION: No acute pulmonary disease. Electronically Signed by Feliz Perez MD 10/16/2019 04:42 P
[2019-10-15] MEDS: NITROGLYCERIN 0.4 MG SUBL TABLET SL PRN ×2 (14:29→14:30)
[2019-10-15 14:30] VITALS: BP 190/80
[2019-10-15] MEDS ORDERED: MORPHINE 4 MG/ML 1ML VIAL/SYRINGE (J2270) IV ONE ×2 (14:30→15:00)
[2019-10-15 14:39] VITALS: BP 167/80
[2019-10-15 14:44] LABS: BLOOD UREA NITROGEN 18 MG/DL (7-18); CALCIUM LEVEL 9.1 MG/DL (8.8-10.2); CARBON DIOXIDE LEVEL 28 MEQ/L (21-32); CHLORIDE LEVEL 102 MEQ/L (98-107); CK-MB VALUE MASS 2.4 NG/ML (<3.6); CPK CREATINE PHOSPHOKINASE 269 U/L (39-308); CREATININE FOR GFR 0.83 MG/DL (0.70-1.30); GLOMERULAR FILTRATION RATE > 60.0 (>49); GLUCOSE, FASTING 171 MG/DL (70-100); MB/CK RELATIVE INDEX 0.89 (< OR =4); SODIUM LEVEL 136 MEQ/L (136-145); TROPONIN I < 0.02 NG/ML (< 0.10)
[2019-10-15 14:54] LABS: INR 1.01; PARTIAL THROMBOPLASTIN TIME 22.6 SECONDS (25.0-38.4)
[2019-10-15] MEDS ORDERED: CLOPIDOGREL 300 MG TAB (PLAVIX) As Ordered ONE (15:01)
[2019-10-15] MEDS ORDERED: CLOPIDOGREL 300 MG TAB (PLAVIX) PO STA (15:03)
--- NOTE | 2019-10-15 17:42 | ECGEPIP ---
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
--- NOTE | 2019-10-15 21:16 | ECGEPIP ---
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
== END 2019-10-15 14:45 | disposition short-term general hospital (02) ==
LOC: M ED 13:40
DX: I21.3 ST elevation (STEMI) myocardial infarction of unspecified site (principal); I11.0 Hypertensive heart disease with heart failure; I50.9 Heart failure, unspecified; E78.5 Hyperlipidemia, unspecified; Z87.891 Personal history of nicotine dependence; Z82.49 Family history of ischemic heart disease and other diseases of the circulatory system; Z79.899 Other long term (current) drug therapy; Z79.82 Long term (current) use of aspirin
CPT/HCPCS: 71045; 80048; 82550; 82553; 84484; 85025; 85610; 85730; 93005; 93041; 94760; 96374; 96375; 99285; J1644; J2270; J2405; J3101

== ENCOUNTER 2019-10-26 09:07 | Emergency (ER) | payer OTHER ==
[~2019-10-26] VITALS: Ht 172.7 cm; Wt 90.5 kg
[~2019-10-26 09:07] MED LIST changes: +CHLO125TA PO; +IRBE300T7 PO; +SPIR-10 PO
[2019-10-26] MEDS ORDERED: HYDR-4571 PO (09:36)
[2019-10-26] MEDS ORDERED: METO25TA4 PO (09:36)
[2019-10-26] MEDS ORDERED: AMIO200T PO (09:36)
[2019-10-26] MEDS ORDERED: VITA100T59 PO (09:36)
[2019-10-26] MEDS ORDERED: DAILTAB51 PO (09:36)
[2019-10-26] MEDS ORDERED: DOK1CAP7 PO (09:36)
[2019-10-26] MEDS ORDERED: FERR32TA PO (09:36)
[2019-10-26] MEDS ORDERED: ATOR80TA59 PO (09:36)
[2019-10-26] MEDS ORDERED: CLOP75TA2 PO (09:36)
[2019-10-26 09:48] LABS: BASO # 0.1 10^3/uL (0.0-0.2); BASO % 0.5 % (0.0-1.0); EOS # 0.1 10^3/uL (0.0-0.5); EOS % 1.1 % (0.0-3.0); HEMATOCRIT 37.7 % (42.0-52.0); HEMOGLOBIN 12.4 g/dl (13.5-17.5); LYMPH # 1.5 10^3/uL (1.5-5.0); LYMPH % 12.2 % (24.0-44.0); MEAN CORPUSCULAR HEMOGLOBIN 29.8 pg (27.0-33.0); MEAN CORPUSCULAR HGB CONC 32.9 g/dl (32.0-36.5); MEAN CORPUSCULAR VOLUME 90.6 fl (80.0-96.0); MONO # 0.9 10^3/uL (0.0-0.8); MONO % 7.6 % (0.0-5.0); NEUTROPHILS # 9.6 10^3/uL (1.5-8.5); NEUTROPHILS % 77.8 % (36.0-66.0); PLATELET COUNT, AUTOMATED 469 10^3/uL (150-450); RED BLOOD COUNT 4.16 10^6/uL (4.30-6.10); WHITE BLOOD COUNT 12.3 10^3/uL (4.0-10.0)
[2019-10-26 10:13] LABS: BLOOD UREA NITROGEN 23 MG/DL (7-18); CALCIUM LEVEL 8.5 MG/DL (8.8-10.2); CARBON DIOXIDE LEVEL 27 MEQ/L (21-32); CHLORIDE LEVEL 102 MEQ/L (98-107); CK-MB VALUE MASS 1.2 NG/ML (<3.6); CPK CREATINE PHOSPHOKINASE 93 U/L (39-308); GLOMERULAR FILTRATION RATE > 60.0 (>49); GLUCOSE, FASTING 165 MG/DL (70-100); MB/CK RELATIVE INDEX 1.29 (< OR =4); POTASSIUM SERUM 3.9 MEQ/L (3.5-5.1); SODIUM LEVEL 138 MEQ/L (136-145); TROPONIN I 0.13 NG/ML (< 0.10)
[2019-10-26 12:20] LABS: CK-MB VALUE MASS < 1.0 NG/ML (<3.6); CPK CREATINE PHOSPHOKINASE 82 U/L (39-308); MB/CK RELATIVE INDEX 1.22 (< OR =4); TROPONIN I 0.12 NG/ML (< 0.10)
[2019-10-26 12:51] VITALS: BP 148/76
--- NOTE | 2019-10-26 17:25 | ECGEPIP ---
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
== END 2019-10-26 13:00 | disposition home or self-care (01) ==
LOC: M ED 09:07
DX: T82.118A Breakdown (mechanical) of other cardiac electronic device, initial encounter (principal); Y71.2 Prosthetic and other implants, materials and accessory cardiovascular devices associated with adverse incidents; I44.7 Left bundle-branch block, unspecified; I11.9 Hypertensive heart disease without heart failure; I25.10 Atherosclerotic heart disease of native coronary artery without angina pectoris; E04.9 Nontoxic goiter, unspecified; I21.3 ST elevation (STEMI) myocardial infarction of unspecified site; Z86.74 Personal history of sudden cardiac arrest; Z87.891 Personal history of nicotine dependence; Z95.1 Presence of aortocoronary bypass graft; Z95.5 Presence of coronary angioplasty implant and graft; Z79.899 Other long term (current) drug therapy; Z79.82 Long term (current) use of aspirin; Z79.02 Long term (current) use of antithrombotics/antiplatelets

== ENCOUNTER → 2020-06-24 | Outpatient (CLI) | payer OTHER ==
[~2020-06-24] MED LIST changes: +AMIO200T3 PO; +AMLO1TAB24 PO; -AMLO5TAB6 PO; +ATOR80TA59 PO; +CLOP75TA2 PO; +DAILTAB51 PO; +DOK1CAP7 PO; +FERR32TA PO; +HYDR-4571 PO; +METO25TA4 PO; +VITA100T59 PO
[2020-06-24 13:57] LABS: BLOOD UREA NITROGEN 14 MG/DL (7-18); CALCIUM LEVEL 8.9 MG/DL (8.8-10.2); CARBON DIOXIDE LEVEL 26 MEQ/L (21-32); CHLORIDE LEVEL 107 MEQ/L (98-107); CREATININE FOR GFR 0.76 MG/DL (0.70-1.30); GLOMERULAR FILTRATION RATE > 60.0 (>49); GLUCOSE, FASTING 103 MG/DL (70-100); POTASSIUM SERUM 4.4 MEQ/L (3.5-5.1); SODIUM LEVEL 140 MEQ/L (136-145)
[2020-06-24 14:06] LABS: HEMOGLOBIN A1c 6.1 %
== END ==
LOC: M WUC 10:29
PROVIDERS: ATTEND Physician Assistant
DX: R73.03 Prediabetes (principal)

== ENCOUNTER → 2020-10-14 | Outpatient (CLI) | payer OTHER ==
[~2020-10-14] MED LIST changes: +ASPI-569 PO; -ASPI81TAEC PO; +MECL-136 PO; -MECL12.589 PO
[2020-10-14 16:46] LABS: THYROGLOBULIN ANTIBODY < 15.0 U/ML (<60.0)
== END ==
LOC: M WUC 13:43
PROVIDERS: ATTEND Internal Medicine Endocrinology, Diabetes & Metabolism
DX: C73 Malignant neoplasm of thyroid gland (principal)

== ENCOUNTER → 2020-10-14 | Outpatient (CLI) | payer OTHER ==
[2020-10-14 16:11] LABS: BASO # 0.1 10^3/uL (0.0-0.2); BASO % 0.7 % (0.0-1.0); EOS # 0.1 10^3/uL (0.0-0.5); EOS % 1.9 % (0.0-3.0); HEMATOCRIT 45.8 % (42.0-52.0); LYMPH # 1.9 10^3/uL (1.5-5.0); LYMPH % 26.5 % (24.0-44.0); MEAN CORPUSCULAR HEMOGLOBIN 29.5 pg (27.0-33.0); MEAN CORPUSCULAR HGB CONC 32.8 g/dl (32.0-36.5); MEAN CORPUSCULAR VOLUME 90.2 fl (80.0-96.0); MONO # 0.5 10^3/uL (0.0-0.8); NEUTROPHILS # 4.7 10^3/uL (1.5-8.5); NEUTROPHILS % 63.6 % (36.0-66.0); PLATELET COUNT, AUTOMATED 288 10^3/uL (150-450); RED BLOOD COUNT 5.08 10^6/uL (4.30-6.10); WHITE BLOOD COUNT 7.3 10^3/uL (4.0-10.0)
[2020-10-14 16:45] LABS: HEMOGLOBIN A1c 5.9 %
[2020-10-14 16:47] LABS: ALBUMIN 4.5 GM/DL (3.2-5.2); ALT/SGPT 33 U/L (12-78); BILIRUBIN,TOTAL 1.1 MG/DL (0.2-1.0); BLOOD UREA NITROGEN 18 MG/DL (7-18); CALCIUM LEVEL 9.3 MG/DL (8.8-10.2); CARBON DIOXIDE LEVEL 31 MEQ/L (21-32); CHLORIDE LEVEL 98 MEQ/L (98-107); CHOLESTEROL LEVEL 137 MG/DL (<200); CHOLESTEROL RISK RATIO 2.795 (<5); CREATININE FOR GFR 0.91 MG/DL (0.70-1.30); GLOMERULAR FILTRATION RATE > 60.0 (>49); GLUCOSE, FASTING 96 MG/DL (70-100); HDL CHOLESTEROL 49 MG/DL (>40); LDL CHOLESTEROL 68 MG/DL (<100); NON-HDL-C 88 MG/DL; POTASSIUM SERUM 4.3 MEQ/L (3.5-5.1); SODIUM LEVEL 135 MEQ/L (136-145); TOTAL PROTEIN 7.3 GM/DL (6.4-8.2); TRIGLYCERIDES LEVEL 102 MG/DL (<150)
== END ==
LOC: M WUC 13:46
PROVIDERS: ATTEND Family Medicine
DX: R73.03 Prediabetes (principal); E78.00 Pure hypercholesterolemia, unspecified; I11.9 Hypertensive heart disease without heart failure

== ENCOUNTER → 2021-05-06 | Outpatient (CLI) | payer OTHER ==
[~2021-05-06] MED LIST changes: +DOK1CAP4 PO; -DOK1CAP7 PO
[2021-05-06 09:47] LABS: BASO % 0.6 % (0.0-1.0); EOS # 0.1 10^3/uL (0.0-0.5); EOS % 1.9 % (0.0-3.0); HEMATOCRIT 42.2 % (42.0-52.0); HEMOGLOBIN 14.3 g/dl (13.5-17.5); LYMPH # 1.4 10^3/uL (1.5-5.0); LYMPH % 21.3 % (24.0-44.0); MEAN CORPUSCULAR HEMOGLOBIN 30.5 pg (27.0-33.0); MEAN CORPUSCULAR HGB CONC 33.9 g/dl (32.0-36.5); MONO # 0.6 10^3/uL (0.0-0.8); MONO % 8.5 % (2.0-8.0); NEUTROPHILS # 4.5 10^3/uL (1.5-8.5); NEUTROPHILS % 67.6 % (36.0-66.0); PLATELET COUNT, AUTOMATED 252 10^3/uL (150-450); RED BLOOD COUNT 4.69 10^6/uL (4.30-6.10); WHITE BLOOD COUNT 6.7 10^3/uL (4.0-10.0)
[2021-05-06 10:20] LABS: ALBUMIN 3.8 GM/DL (3.2-5.2); ALT/SGPT 28 U/L (12-78); BILIRUBIN,TOTAL 0.7 MG/DL (0.2-1.0); BLOOD UREA NITROGEN 19 MG/DL (7-18); CALCIUM LEVEL 8.6 MG/DL (8.8-10.2); CARBON DIOXIDE LEVEL 29 MEQ/L (21-32); CHLORIDE LEVEL 104 MEQ/L (98-107); CHOLESTEROL LEVEL 100 MG/DL (<200); CHOLESTEROL RISK RATIO 2.325 (<5); CREATININE FOR GFR 0.85 MG/DL (0.70-1.30); GLOMERULAR FILTRATION RATE > 60.0 (>49); GLUCOSE, FASTING 113 MG/DL (70-100); HDL CHOLESTEROL 43 MG/DL (>40); LDL CHOLESTEROL 43 MG/DL (<100); NON-HDL-C 57 MG/DL; POTASSIUM SERUM 4.5 MEQ/L (3.5-5.1); SODIUM LEVEL 139 MEQ/L (136-145); TOTAL PROTEIN 6.7 GM/DL (6.4-8.2); TRIGLYCERIDES LEVEL 72 MG/DL (<150)
[2021-05-06 10:47] LABS: HEMOGLOBIN A1c 6.1 %
== END ==
LOC: M LAB 09:28
PROVIDERS: ATTEND Family Medicine
DX: R73.03 Prediabetes (principal); E78.00 Pure hypercholesterolemia, unspecified

== ENCOUNTER → 2021-10-06 | Outpatient (CLI) | payer BC ==
[~2021-10-06] MED LIST changes: -AMIO200T3 PO; +AMIO200T49 PO
[2021-10-06 18:11] LABS: BLOOD UREA NITROGEN 16 MG/DL (7-18); CALCIUM LEVEL 8.8 MG/DL (8.8-10.2); CARBON DIOXIDE LEVEL 32 MEQ/L (21-32); CHLORIDE LEVEL 101 MEQ/L (98-107); CREATININE FOR GFR 0.84 MG/DL (0.70-1.30); GLOMERULAR FILTRATION RATE > 60.0 (>49); GLUCOSE, FASTING 95 MG/DL (70-100); POTASSIUM SERUM 4.2 MEQ/L (3.5-5.1); SODIUM LEVEL 137 MEQ/L (136-145)
== END ==
LOC: M WUC 14:02
PROVIDERS: ATTEND Family Medicine
DX: C73 Malignant neoplasm of thyroid gland (principal)

== ENCOUNTER → 2021-10-06 | Outpatient (CLI) | payer BC, OTHER ==
[2021-10-06 17:47] LABS: HEMOGLOBIN A1c 6.1 %
[2021-10-09 23:08] LABS: PSA TOTAL 0.6 ng/mL (0.0-4.0)
== END ==
LOC: M WUC 13:58
PROVIDERS: ATTEND Physician Assistant
DX: Z00.00 Encounter for general adult medical examination without abnormal findings (principal); R73.03 Prediabetes; Z12.5 Encounter for screening for malignant neoplasm of prostate

== ENCOUNTER → 2021-11-30 | Outpatient (CLI) | payer BC | LOC: M RAD 14:23 | PROVIDERS: ATTEND Physician Assistant | DX: I65.23 Occlusion and stenosis of bilateral carotid arteries (principal) ==

== ENCOUNTER → 2022-05-15 | Outpatient (CLI) | payer BC ==
[2022-05-15 11:12] LABS: BASO # 0.1 10^3/uL (0.0-0.2); BASO % 0.6 % (0.0-1.0); EOS # 0.1 10^3/uL (0.0-0.5); EOS % 1.1 % (0.0-3.0); HEMATOCRIT 43.6 % (42.0-52.0); HEMOGLOBIN 14.4 g/dl (13.5-17.5); LYMPH # 1.1 10^3/uL (1.5-5.0); LYMPH % 13.4 % (24.0-44.0); MEAN CORPUSCULAR HEMOGLOBIN 30.3 pg (27.0-33.0); MEAN CORPUSCULAR VOLUME 91.6 fl (80.0-96.0); MONO # 0.6 10^3/uL (0.0-0.8); MONO % 6.7 % (2.0-8.0); NEUTROPHILS # 6.5 10^3/uL (1.5-8.5); NEUTROPHILS % 77.7 % (36.0-66.0); PLATELET COUNT, AUTOMATED 265 10^3/uL (150-450); RED BLOOD COUNT 4.76 10^6/uL (4.30-6.10); WHITE BLOOD COUNT 8.3 10^3/uL (4.0-10.0)
[2022-05-15 11:36] LABS: HEMOGLOBIN A1c 6.2 %
[2022-05-15 12:24] LABS: ALBUMIN 3.9 GM/DL (3.2-5.2); ALT/SGPT 25 U/L (12-78); BILIRUBIN,TOTAL 0.6 MG/DL (0.2-1.0); BLOOD UREA NITROGEN 15 MG/DL (7-18); CALCIUM LEVEL 8.9 MG/DL (8.8-10.2); CARBON DIOXIDE LEVEL 27 MEQ/L (21-32); CHLORIDE LEVEL 101 MEQ/L (98-107); CHOLESTEROL LEVEL 117 MG/DL (<200); CREATININE FOR GFR 0.82 MG/DL (0.70-1.30); FREE T4 0.99 NG/DL (0.76-1.46); GLOMERULAR FILTRATION RATE > 60.0 (>49); GLUCOSE, FASTING 121 MG/DL (70-100); HDL CHOLESTEROL 50 MG/DL (>40); LDL CHOLESTEROL 48 MG/DL (<100); NON-HDL-C 67 MG/DL; POTASSIUM SERUM 4.2 MEQ/L (3.5-5.1); SODIUM LEVEL 135 MEQ/L (136-145); TOTAL PROTEIN 6.7 GM/DL (6.4-8.2); TRIGLYCERIDES LEVEL 96 MG/DL (<150)
[2022-05-16 17:07] LABS: PSA TOTAL 0.6 ng/mL (0.0-4.0)
== END ==
LOC: M WUC 08:27
PROVIDERS: ATTEND Family Medicine
DX: R73.03 Prediabetes (principal); E78.00 Pure hypercholesterolemia, unspecified; I11.9 Hypertensive heart disease without heart failure; Z12.5 Encounter for screening for malignant neoplasm of prostate

== ENCOUNTER → 2022-05-15 | Outpatient (CLI) | payer BC ==
[2022-05-15 11:12] LABS: HEMATOCRIT 43.8 % (42.0-52.0); HEMOGLOBIN 14.4 g/dl (13.5-17.5); MEAN CORPUSCULAR HEMOGLOBIN 30.3 pg (27.0-33.0); MEAN CORPUSCULAR HGB CONC 32.9 g/dl (32.0-36.5); PLATELET COUNT, AUTOMATED 278 10^3/uL (150-450); RED BLOOD COUNT 4.76 10^6/uL (4.30-6.10); WHITE BLOOD COUNT 8.1 10^3/uL (4.0-10.0)
[2022-05-15 12:27] LABS: ALBUMIN 3.9 GM/DL (3.2-5.2); ALT/SGPT 24 U/L (12-78); BILIRUBIN,TOTAL 0.6 MG/DL (0.2-1.0); BLOOD UREA NITROGEN 16 MG/DL (7-18); CALCIUM LEVEL 8.7 MG/DL (8.8-10.2); CARBON DIOXIDE LEVEL 29 MEQ/L (21-32); CHLORIDE LEVEL 101 MEQ/L (98-107); CHOLESTEROL LEVEL 115 MG/DL (<200); CHOLESTEROL RISK RATIO 2.395 (<5); CREATININE FOR GFR 0.79 MG/DL (0.70-1.30); GLOMERULAR FILTRATION RATE > 60.0 (>49); GLUCOSE, FASTING 122 MG/DL (70-100); HDL CHOLESTEROL 48 MG/DL (>40); LDL CHOLESTEROL 47 MG/DL (<100); NON-HDL-C 67 MG/DL; POTASSIUM SERUM 4.2 MEQ/L (3.5-5.1); SODIUM LEVEL 135 MEQ/L (136-145); TRIGLYCERIDES LEVEL 100 MG/DL (<150)
== END ==
LOC: M WUC 08:24
PROVIDERS: ATTEND Physician Assistant
DX: I25.10 Atherosclerotic heart disease of native coronary artery without angina pectoris (principal)

== ENCOUNTER → 2023-01-19 | Outpatient (CLI) | payer BC ==
[2023-01-19 08:52] LABS: BASO # 0.1 10^3/uL (0.0-0.2); BASO % 0.6 % (0.0-1.0); EOS # 0.2 10^3/uL (0.0-0.5); EOS % 2.4 % (0.0-3.0); HEMATOCRIT 41.6 % (42.0-52.0); HEMOGLOBIN 13.9 g/dl (13.5-17.5); LYMPH # 1.4 10^3/uL (1.5-5.0); LYMPH % 17.8 % (24.0-44.0); MEAN CORPUSCULAR HEMOGLOBIN 30.4 pg (27.0-33.0); MEAN CORPUSCULAR HGB CONC 33.4 g/dl (32.0-36.5); MONO # 0.6 10^3/uL (0.0-0.8); MONO % 7.8 % (2.0-8.0); NEUTROPHILS # 5.6 10^3/uL (1.5-8.5); NEUTROPHILS % 71.1 % (36.0-66.0); PLATELET COUNT, AUTOMATED 248 10^3/uL (150-450); RED BLOOD COUNT 4.57 10^6/uL (4.30-6.10); WHITE BLOOD COUNT 7.9 10^3/uL (4.0-10.0)
[2023-01-19 09:57] LABS: ALKALINE PHOSPHATASE 64 U/L (46-116); ALT/SGPT 30 U/L (7.0-40); AST/SGOT 20 U/L (<34); BILIRUBIN,TOTAL 0.6 MG/DL (0.3-1.2); BLOOD UREA NITROGEN 20 MG/DL (9-23); CALCIUM LEVEL 8.4 MG/DL (8.3-10.6); CARBON DIOXIDE LEVEL 29 MMOL/L (20-31); CHLORIDE LEVEL 101 MMOL/L (98-107); CHOLESTEROL LEVEL 102 MG/DL (<200); CHOLESTEROL RISK RATIO 2.73 (<5); GLOMERULAR FILTRATION RATE > 60.0 (>49); GLUCOSE, FASTING 112 MG/DL (74-106); HDL CHOLESTEROL 37.3 MG/DL (>40); LDL CHOLESTEROL 44.7 MG/DL (<100); NON-HDL-C 64.7 MG/DL; POTASSIUM SERUM 4.1 MMOL/L (3.5-5.1); SODIUM LEVEL 136 MMOL/L (136-145); TOTAL PROTEIN 6.2 G/DL (5.7-8.2); TRIGLYCERIDES LEVEL 100 MG/DL (<150)
== END ==
LOC: M LAB 08:09
PROVIDERS: ATTEND Nurse Practitioner Adult Health
DX: R73.03 Prediabetes (principal); E78.00 Pure hypercholesterolemia, unspecified

== ENCOUNTER → 2023-05-15 | Outpatient (CLI) | payer BC ==
[2023-05-15 10:18] LABS: BASO # 0.1 10^3/uL (0.0-0.2); BASO % 0.6 % (0.0-1.0); EOS # 0.2 10^3/uL (0.0-0.5); HEMATOCRIT 42.7 % (42.0-52.0); HEMOGLOBIN 14.3 g/dl (13.5-17.5); LYMPH # 1.5 10^3/uL (1.5-5.0); LYMPH % 19.1 % (24.0-44.0); MEAN CORPUSCULAR HGB CONC 33.5 g/dl (32.0-36.5); MEAN CORPUSCULAR VOLUME 92.4 fl (80.0-96.0); MONO # 0.7 10^3/uL (0.0-0.8); MONO % 8.3 % (2.0-8.0); NEUTROPHILS # 5.5 10^3/uL (1.5-8.5); NEUTROPHILS % 69.9 % (36.0-66.0); PLATELET COUNT, AUTOMATED 245 10^3/uL (150-450); RED BLOOD COUNT 4.62 10^6/uL (4.30-6.10); WHITE BLOOD COUNT 7.9 10^3/uL (4.0-10.0)
[2023-05-15 10:47] LABS: ALBUMIN 3.8 G/DL (3.2-5.2); ALKALINE PHOSPHATASE 65 U/L (46-116); ALT/SGPT 36 U/L (7.0-40); AST/SGOT 24 U/L (<34); BILIRUBIN,TOTAL 0.9 MG/DL (0.3-1.2); BLOOD UREA NITROGEN 15 MG/DL (9-23); CALCIUM LEVEL 8.8 MG/DL (8.3-10.6); CARBON DIOXIDE LEVEL 33 MMOL/L (20-31); CHLORIDE LEVEL 101 MMOL/L (98-107); CHOLESTEROL LEVEL 117 MG/DL (<200); CHOLESTEROL RISK RATIO 2.61 (<5); CREATININE FOR GFR 0.78 MG/DL (0.70-1.30); GLOMERULAR FILTRATION RATE > 60.0 (>49); GLUCOSE, FASTING 109 MG/DL (74-106); HDL CHOLESTEROL 44.7 MG/DL (>40); LDL CHOLESTEROL 55.3 MG/DL (<100); NON-HDL-C 72.3 MG/DL; POTASSIUM SERUM 4.2 MMOL/L (3.5-5.1); SODIUM LEVEL 137 MMOL/L (136-145); TOTAL PROTEIN 6.3 G/DL (5.7-8.2); TRIGLYCERIDES LEVEL 85 MG/DL (<150)
[2023-05-15 10:48] LABS: FREE T4 1.01 NG/DL (0.89-1.76)
[2023-05-15 10:49] LABS: THYROID STIMULATING HORMONE 2.881 uIU/ML (0.55-4.78)
== END ==
LOC: M WUC 08:09
PROVIDERS: ATTEND Family Medicine
DX: Z12.5 Encounter for screening for malignant neoplasm of prostate (principal); R73.03 Prediabetes; E78.00 Pure hypercholesterolemia, unspecified

== ENCOUNTER → 2023-10-01 | Outpatient (CLI) | payer BC ==
[~2023-10-01] MED LIST changes: +IRBE300T25 PO; -IRBE300T7 PO
[2023-10-01 12:16] LABS: BLOOD UREA NITROGEN 20 MG/DL (9-23); CALCIUM LEVEL 9.1 MG/DL (8.3-10.6); CARBON DIOXIDE LEVEL 32 MMOL/L (20-31); CHLORIDE LEVEL 101 MMOL/L (98-107); CREATININE FOR GFR 0.95 MG/DL (0.70-1.30); GLOMERULAR FILTRATION RATE > 60.0 (>49); GLUCOSE, FASTING 109 MG/DL (74-106); POTASSIUM SERUM 4.4 MMOL/L (3.5-5.1); SODIUM LEVEL 137 MMOL/L (136-145)
== END ==
LOC: M WUC 09:54
PROVIDERS: ATTEND Physician Assistant
DX: I50.42 Chronic combined systolic (congestive) and diastolic (congestive) heart failure (principal)

== ENCOUNTER → 2023-10-01 | Outpatient (CLI) | payer BC ==
[2023-10-01 12:12] LABS: BASO # 0.1 10^3/uL (0.0-0.2); BASO % 0.6 % (0.0-1.0); EOS # 0.2 10^3/uL (0.0-0.5); EOS % 1.9 % (0.0-3.0); HEMATOCRIT 45.1 % (42.0-52.0); HEMOGLOBIN 14.9 g/dl (13.5-17.5); LYMPH # 1.6 10^3/uL (1.5-5.0); LYMPH % 19.6 % (24.0-44.0); MEAN CORPUSCULAR HEMOGLOBIN 30.8 pg (27.0-33.0); MEAN CORPUSCULAR VOLUME 93.2 fl (80.0-96.0); MONO # 0.7 10^3/uL (0.0-0.8); MONO % 8.2 % (2.0-8.0); NEUTROPHILS # 5.5 10^3/uL (1.5-8.5); NEUTROPHILS % 69.4 % (36.0-66.0); PLATELET COUNT, AUTOMATED 282 10^3/uL (150-450); RED BLOOD COUNT 4.84 10^6/uL (4.30-6.10)
[2023-10-01 12:16] LABS: ALBUMIN 4.1 G/DL (3.2-5.2); ALKALINE PHOSPHATASE 64 U/L (46-116); ALT/SGPT 28 U/L (7.0-40); AST/SGOT 22 U/L (<34); BILIRUBIN,TOTAL 0.9 MG/DL (0.3-1.2); BLOOD UREA NITROGEN 20 MG/DL (9-23); CALCIUM LEVEL 9.1 MG/DL (8.3-10.6); CARBON DIOXIDE LEVEL 31 MMOL/L (20-31); CHLORIDE LEVEL 102 MMOL/L (98-107); CREATININE FOR GFR 0.96 MG/DL (0.70-1.30); GLOMERULAR FILTRATION RATE > 60.0 (>49); GLUCOSE, FASTING 108 MG/DL (74-106); POTASSIUM SERUM 4.3 MMOL/L (3.5-5.1); SODIUM LEVEL 137 MMOL/L (136-145); TOTAL PROTEIN 6.5 G/DL (5.7-8.2)
== END ==
LOC: M WUC 09:48
PROVIDERS: ATTEND Nurse Practitioner Adult Health
DX: R73.03 Prediabetes (principal)